=== PATIENT | female | born 1970 | race Caucasian/White ===

== ENCOUNTER 2017-03-20 17:38 | Emergency (ER) | payer OTHER ==
[~2017-03-20] VITALS: Ht 157.5 cm; Wt 69.3 kg
[~2017-03-20 17:38] MED LIST: ALBU1AER9 INH; [UNRECOGNIZED DRUG - REMARK] PO
[2017-03-20 17:41] VITALS: TEMP 36.6; Ht 157.5 cm; Wt 69.3 kg
[2017-03-20] MEDS ORDERED: POTA-65 PO (17:55)
[2017-03-20] MEDS ORDERED: CYM60 PO (17:55)
[2017-03-20] MEDS ORDERED: SNG10 PO (17:55)
[2017-03-20] MEDS ORDERED: ADVIN10/60 PO (17:55)
[2017-03-20] MEDS ORDERED: NRN100 PO (17:55)
[2017-03-20] MEDS ORDERED: VNTHFA/IN PO (17:55)
[2017-03-20] MEDS ORDERED: OMEP20CA9 PO (17:55)
[2017-03-20] MEDS ORDERED: ONDANSETRON INJ 2 MG/ML 2 ML VIAL IV STA (18:06)
[2017-03-20] MEDS ORDERED: SODIUM CHLORIDE 0.9% 1000ML 1,000 ML IV STA (18:06)
[2017-03-20] MEDS ORDERED: FENTANYL CITRATE INJ 50 MCG/1 ML 2 ML VIAL IV STA (18:06)
--- NOTE | 2017-03-20 18:07 | EMERGENCY ROOM VISIT NOTE ---
History Report prepared by Subhash: Kvng Green Under the Supervision of: Dr. Latasha Vasquez D.O. First contact with patient: 17:46 Chief Complaint: ABDOMINAL PAIN Stated Complaint: PAIN L SIDE ABD History of Present Illness The patient is a 47 year old female who presents to the Emergency Room with complaints of persistent left-sided abdominal pain that started a couple days ago. She says that she saw her primary care physician today, and was told to come here for possible diverticulitis. The patient says the pain has been constant and intermittently radiates into her back. She states that the pain does not change on position. She notes that her appetite has been a bit decreased, but she has still been eating and drinking. The patient notes that she has been nauseous, and a few nights ago had a low-grade fever of 99 with chills. She denies any abdominal distension, diarrhea, or bowel movement problems. She notes a history of a complete hysterectomy following a prior tubal ligation. No recent trauma, no change in activity or exercise, no change in diet, no recent illness. No history of GI illness or inflammatory bowel disease. No recent change in bowel movements or urinary habits, no nausea vomiting. Source of History: patient Onset: A couple days ago Position: abdomen (left) Quality: other (concern for diverticulitis) Timing: constant, other (persistent) Associated Symptoms: + fevers, + chills, + nausea, + back pain, No diarrhea Note: Associated symptoms: Appetite a bit decreased. Denies any abdominal distension, bowel movement problems. Review of Systems See HPI for pertinent positives & negatives. A total of 10 systems reviewed and were otherwise negative. Past Medical & Surgical Medical Problems: (1) HTN (hypertension) (2) Kidney disease Family History FHx: cancer FHx: gallbladder disease FHx: heart disease Hypertension Kidney disease Seizures Social History Smoking Status: Current Every Day Smoker Alcohol Use: none Drug Use: none Housing Status: lives with family Occupation Status: unemployed Current/Historical Medications Scheduled Duloxetine HCl (Duloxetine HCl), 60 MG PO DAILY Fluticasone Prop/Salmeterol (Advair Diskus 100/50 60 Dose), 1 PUFF PO BID Gabapentin (Gabapentin), 100 MG PO DAILY Montelukast Sod (Montelukast Sodium), 10 MG PO DAILY Omeprazole (Prilosec), 20 MG PO DAILY Potassium Chloride (Potassium Chloride ER), 20 MEQ PO BID Scheduled PRN Albuterol Hfa (Ventolin Hfa), 2 PUFFS PO BID PRN for Shortness of Breath Allergies Coded Allergies: Penicillins (Verified Allergy, Intermediate, HIVES/N&V, 03/20/17) Latex (Verified Allergy, Mild, ERRYTHEMA, 03/20/17) Physical Exam Vital Signs Date Time Temp Pulse Resp B/P (MAP) Pulse Ox O2 Delivery O2 Flow Rate FiO2 03/20/17 21:05 65 18 154/88 98 03/20/17 20:15 62 18 141/84 97 Room Air 03/20/17 17:41 36.6 73 16 182/103 97 Room Air Physical Exam GENERAL: alert, poor dentition, well appearing, well nourished, no distress, non -toxic EYE EXAM: normal conjunctiva, PERRL and EOM's grossly intact OROPHARYNX: no exudate, no erythema, lips, buccal mucosa, and tongue normal and mucous membranes are moist NECK: supple, no nuchal rigidity, no adenopathy, non-tender LUNGS: Clear to auscultation. Normal chest wall mechanics HEART: no murmurs, S1 normal and S2 normal ABDOMEN: Left lower quadrant tenderness, abdomen soft, normo-active bowel sounds , no masses, no rebound or guarding. BACK: Back is symmetrical on inspection and there is no deformity, no midline tenderness, no CVA tenderness. SKIN: no rashes and no bruising UPPER EXTREMITIES: upper extremities are grossly normal. LOWER EXTREMITIES: No pitting edema. NEURO EXAM: Normal sensorium, cranial nerves II-XII grossly intact, normal speech, no gross weakness of arms, no gross weakness of legs. Medical Decision & Procedures ER Provider Diagnostic Interpretation: CT results have been interpreted by the radiologist and reviewed by me. CT OF THE ABDOMEN AND PELVIS WITH CONTRAST CLINICAL HISTORY: Left lower quadrant pain. Evaluate for diverticulitis. COMPARISON STUDY: None. TECHNIQUE: Following IV administration of 117 mL of Optiray-320, axial images of the abdomen and pelvis were obtained from the lung bases to the proximal femurs. Images were reviewed in the axial, sagittal, and coronal planes. IV contrast was administered without complication. A dose lowering technique was utilized adhering to the principles of ALARA. CT DOSE: 409.14 mGy.cm FINDINGS: The liver, spleen, adrenal glands, kidneys and pancreas are normal. There is no biliary or pancreatic ductal dilatation. There is no peripancreatic or pericholecystic infiltration. No hydronephrosis is present. The caliber and wall thickness of small and large bowel are normal. The appendix is normal. There is left colon diverticulosis without evidence of acute diverticulitis. Skeletal structures are unremarkable. There is no lymphadenopathy or ascites. IMPRESSION: 1. No acute process within the abdomen or pelvis. 2. Left colon diverticulosis without evidence for acute diverticulitis. 3. No bowel obstruction. Normal appendix. Electronically signed by: Jordi Farooq M.D. 03/20/2017 7:54 PM Dictated Date/Time: 03/20/2017 7:48 PM Laboratory Results 03/20/17 18:20 Red Blood Count 4.90, Mean Corpuscular Volume 92.7, Mean Corpuscular Hemoglobin 31.4, Mean Corpuscular Hemoglobin Concent 33.9, Mean Platelet Volume 9.7, Neutrophils (%) (Auto) 63.3, Lymphocytes (%) (Auto) 26.0, Monocytes (%) (Auto) 7.4, Eosinophils (%) (Auto) 2.9, Basophils (%) (Auto) 0.2, Neutrophils # (Auto) 5.49, Lymphocytes # (Auto) 2.26, Monocytes # (Auto) 0.64, Eosinophils # (Auto) 0.25, Basophils # (Auto) 0.02 03/20/17 18:20 Test 03/20/17 18:20 03/20/17 18:25 03/20/17 18:40 White Blood Count 8.68 K/uL (4.8-10.8) Red Blood Count 4.90 M/uL (4.2-5.4) Hemoglobin 15.4 g/dL (12.0-16.0) Hematocrit 45.4 % (37-47) Mean Corpuscular Volume 92.7 fL (80-100) Mean Corpuscular Hemoglobin 31.4 pg (25-34) Mean Corpuscular Hemoglobin Concent 33.9 g/dl (32-36) Platelet Count 270 K/uL (130-400) Mean Platelet Volume 9.7 fL (7.4-10.4) Neutrophils (%) (Auto) 63.3 % Lymphocytes (%) (Auto) 26.0 % Monocytes (%) (Auto) 7.4 % Eosinophils (%) (Auto) 2.9 % Basophils (%) (Auto) 0.2 % Neutrophils # (Auto) 5.49 K/uL (1.4-6.5) Lymphocytes # (Auto) 2.26 K/uL (1.2-3.4) Monocytes # (Auto) 0.64 K/uL (0.11-0.59) Eosinophils # (Auto) 0.25 K/uL (0-0.5) Basophils # (Auto) 0.02 K/uL (0-0.2) RDW Standard Deviation 43.3 fL (36.4-46.3) RDW Coefficient of Variation 12.8 % (11.5-14.5) Immature Granulocyte % (Auto) 0.2 % Immature Granulocyte # (Auto) 0.02 K/uL (0.00-0.02) Prothrombin Time 10.0 SECONDS (9.0-12.0) Prothromb Time International Ratio 0.9 (0.9-1.1) Anion Gap 8.0 mmol/L (3-11) Est Creatinine Clear Calc Drug Dose 80.6 ml/min Estimated GFR () 105.1 Estimated GFR (Non- 90.7 BUN/Creatinine Ratio 21.4 (10-20) Calcium Level 9.4 mg/dl (8.5-10.1) Total Bilirubin 0.2 mg/dl (0.2-1) Aspartate Amino Transf (AST/SGOT) 12 U/L (15-37) Alanine Aminotransferase (ALT/SGPT) 28 U/L (12-78) Alkaline Phosphatase 71 U/L (45-117) Total Protein 7.5 gm/dl (6.4-8.2) Albumin 4.0 gm/dl (3.4-5.0) Globulin 3.5 gm/dl (2.5-4.0) Albumin/Globulin Ratio 1.1 (0.9-2) Lipase 132 U/L (73-393) Bedside Lactic Acid Venous 0.91 mmol/L (0.90-1.70) Urine Color YELLOW Urine Appearance CLEAR (CLEAR) Urine pH 7.5 (4.5-7.5) Urine Specific [place] 1.009 (1.000-1.030) Urine Protein NEG (NEG) Urine Glucose (UA) NEG (NEG) Urine Ketones NEG (NEG) Urine Occult Blood NEG (NEG) Urine Nitrite NEG (NEG) Urine Bilirubin NEG (NEG) Urine Urobilinogen NEG (NEG) Urine Leukocyte Esterase NEG (NEG) Laboratory results per my review. Medications Administered Medications (Trade) Dose Ordered Sig/Gumaro Route Start Time Stop Time Status Last Admin Dose Admin Sodium Chloride 1,000 ml @ 999 mls/hr Q1H1M STAT IV 03/20/17 18:06 03/20/17 19:06 DC 03/20/17 18:35 999 MLS/HR Fentanyl Citrate (Fentanyl Inj) 50 mcg NOW STAT IV 03/20/17 18:06 03/20/17 18:08 DC 03/20/17 18:36 50 MCG Ondansetron HCl (Zofran Inj) 4 mg NOW STAT IV 03/20/17 18:06 03/20/17 18:08 DC 03/20/17 18:36 4 MG Ketorolac Tromethamine (Toradol Inj) 30 mg NOW STAT IV 03/20/17 20:05 03/20/17 20:06 DC 03/20/17 20:14 30 MG ED Course 1759: The patient was evaluated in room C8. A complete history and physical exam was performed. 1805: Ordered Zofran Inj 4 mg IV, Fentanyl Inj 4 mg IV, NSS 1000 ml @ 999 mls/ hr IV. 2004: Upon reevaluation, the patient says the pain medication helped a little. I discussed the findings and the treatment plan with the patient. She verbalizes agreement and understanding. She was discharged home. Ordered Toradol Inj 30 mg IV. Medical Decision Differential diagnoses includes but is not limited to gastritis, peptic ulcer disease, GERD, gallbladder disease, pancreatitis, small bowel obstruction, acute coronary syndrome, pericarditis, ischemic bowel, irritable bowel disease, irritable bowel syndrome, appendicitis, diverticulitis, malignancy, hernia, urinary tract infection, torsion, /ectopic , perforation, trauma, infectious. Patient well-appearing here despite complaints, pain improved initially with a dose of fentanyl and also only with a dose of Toradol. Labs and imaging as well as urine reassuring. No evidence of acute GI or pathology. No evidence of bacteremia/sepsis, doubt vascular etiology, mesenteric ischemia, perforation. Doubt occult GI bleed. No evidence of kidney stone, pyelonephritis UTI. Patient asking to eat at bedside, and related with a steady gait. Discussed close follow-up with family doctor, symptoms to watch and return for, she verbalized understanding was agreeable with plan. Medication Reconcilliation Current Medication List: was personally reviewed by me Blood Pressure Screening Patient's blood pressure: Elevated blood pressure Blood pressure disposition: Elevated BP felt to be situational Impression Primary Impression: Abdominal pain Scribe Attestation The scribe's documentation has been prepared under my direction and personally reviewed by me in its entirety. I confirm that the note above accurately reflects all work, treatment, procedures, and medical decision making performed by me. Departure Information Dispostion Home / Self-Care Referrals Neville Mccurdy M.D. (PCP) Patient Instructions My [facility] Additional Instructions Please follow up with your regular doctor. Please continue to monitor your symptoms for any changes. If you develop worsening pain, develop fevers, vomiting, noticed a change in your bowel movements, or you have any other new concerns, please return the emergency room. Problem Qualifiers Primary Impression: Abdominal pain Abdominal location: left lower quadrant Qualified Codes: R10.32 - Left lower quadrant pain
[2017-03-20] MEDS ORDERED: OPTIRAY 320 IV PRN (18:15)
[2017-03-20 18:32] LABS: BASO % 0.2 %; BASO ABS # 0.02 K/uL (0-0.2); COMPLETE YES; EOS % 2.9 %; HEMATOCRIT 45.4 % (37-47); IG% 0.2 %; LYMPH ABS # 2.26 K/uL (1.2-3.4); MEAN CELL VOLUME 92.7 fL (80-100); MEAN CORPUSCULAR HEMOGLOBIN 31.4 pg (25-34); MEAN CORPUSCULAR HGB CONC 33.9 g/dl (32-36); MEAN PLATELET VOLUME 9.7 fL (7.4-10.4); MONO % 7.4 %; NEUT % 63.3 %; PLATELET COUNT 270 K/uL (130-400); WHITE BLOOD COUNT 8.68 K/uL (4.8-10.8)
[2017-03-20 18:43] LABS: INR 0.9 (0.9-1.1)
[2017-03-20 18:46] LABS: URINE APPEARANCE CLEAR (CLEAR); URINE BILIRUBIN NEG (NEG); URINE COLOR YELLOW; URINE NITRITE NEG (NEG); URINE PH 7.5 (4.5-7.5); URINE SPECIFIC GRAVITY 1.009 (1.000-1.030); UROBILINOGEN NEG (NEG); ZZUR CULT IF INDIC CLEAN CATCH NO
[2017-03-20 18:49] LABS: BUN/CREATININE RATIO 21.4 (10-20); CALCIUM 9.4 mg/dl (8.5-10.1); CREATININE 0.77 mg/dl (0.60-1.20); POTASSIUM 4.1 mmol/L (3.5-5.1)
[2017-03-20 18:52] LABS: ALB/GLOB RATIO 1.1 (0.9-2)
[2017-03-20 18:52] LABS: MANUAL MICROSCOPIC REQUIRED? NO; REVIEW REQ? NO
--- NOTE | 2017-03-20 19:56 | DIAGNOSTIC IMAGING REPORT ---
CT OF THE ABDOMEN AND PELVIS WITH CONTRAST CLINICAL HISTORY: Left lower quadrant pain. Evaluate for diverticulitis. COMPARISON STUDY: None. TECHNIQUE: Following IV administration of 117 mL of Optiray-320, axial images of the abdomen and pelvis were obtained from the lung bases to the proximal femurs. Images were reviewed in the axial, sagittal, and coronal planes. IV contrast was administered without complication. A dose lowering technique was utilized adhering to the principles of ALARA. CT DOSE: 409.14 mGy.cm FINDINGS: The liver, spleen, adrenal glands, kidneys and pancreas are normal. There is no biliary or pancreatic ductal dilatation. There is no peripancreatic or pericholecystic infiltration. No hydronephrosis is present. The caliber and wall thickness of small and large bowel are normal. The appendix is normal. There is left colon diverticulosis without evidence of acute diverticulitis. Skeletal structures are unremarkable. There is no lymphadenopathy or ascites. IMPRESSION: 1. No acute process within the abdomen or pelvis. 2. Left colon diverticulosis without evidence for acute diverticulitis. 3. No bowel obstruction. Normal appendix. Electronically signed by: Jordi Farooq M.D. 03/20/2017 7:54 PM Dictated Date/Time: 03/20/2017 7:48 PM
[2017-03-20] MEDS ORDERED: KETOROLAC TROMETHAMINE 30 MG/ML VIAL IV STA (20:05)
[2017-03-20 21:05] VITALS: BP 154/88; PULSE 65; O2SAT 98
== END 2017-03-20 21:06 | disposition home or self-care (01) ==
LOC: C.EDB 17:39 → C.EDC 21:06
DX: R10.9 Unspecified abdominal pain (principal); I12.9 Hypertensive chronic kidney disease with stage 1 through stage 4 chronic kidney disease, or unspecified chronic kidney disease; N18.9 Chronic kidney disease, unspecified; F17.200 Nicotine dependence, unspecified, uncomplicated; Z79.899 Other long term (current) drug therapy; Z88.0 Allergy status to penicillin; Z91.040 Latex allergy status; Z80.9 Family history of malignant neoplasm, unspecified; Z83.79 Family history of other diseases of the digestive system; Z82.49 Family history of ischemic heart disease and other diseases of the circulatory system; Z84.1 Family history of disorders of kidney and ureter; Z82.0 Family history of epilepsy and other diseases of the nervous system